=== PATIENT | female | born 1990 | race Caucasian/White ===

== ENCOUNTER 2024-05-30 10:58 | Emergency (ER) | payer SELFPAY ==
[2024-05-30 11:24] LABS: Bilirubin Negative (Negative); Blood, Urine Negative (Negative); Clarity Clear (Clear); Glucose, Urine (Dipstick) Negative (Negative); Ketone, Urine Negative (Negative); Leukocyte Negative (Negative); Nitrite Negative (Negative); Protein, Urine (Dipstick) Negative (Neg-Trace); RBC/HPF 0-3 HPF (0-3); Specific Gravity, Urine 1.015 (1.005-1.030); Squamous Epithelial 0-3 HPF (0-3); Urobilinogen 0.2 mg/dL (Less than 2)
[2024-05-30 11:30] LABS: Pregnancy Test - Urine (BHCG) Negative (Negative); Pregu Control Background? CLEAR/WHITE (CLR/WHITE); Pregu Control Bar Appear? YES (CONTROL BAR); Specific Gravity 1.015 (1.002-1.036)
[2024-05-30] MEDS ORDERED: Acetaminophen 325 MG TAB ONE (11:48)
== END 2024-05-30 12:11 | disposition home or self-care (01) ==
LOC: NAV ERS 10:58
DX: M54.50 Low back pain, unspecified (principal); R10.9 Unspecified abdominal pain; F17.290 Nicotine dependence, other tobacco product, uncomplicated; Z79.899 Other long term (current) drug therapy
CPT/HCPCS: 81001; 81025; 99283

== ENCOUNTER 2025-04-10 23:40 | Emergency (ER) | payer BC, SELFPAY | END 2025-04-11 00:44 | disposition home or self-care (01) | LOC: NAV ERS 23:40 | DX: U07.1 COVID-19 (principal); R06.02 Shortness of breath; F17.290 Nicotine dependence, other tobacco product, uncomplicated | CPT/HCPCS: 71046 ==